=== PATIENT | male | born 1990 | race Caucasian/White ===

== ENCOUNTER 2018-11-18 20:23 | Emergency (ER) | payer OTHER ==
[~2018-11-18] VITALS: Ht 182.9 cm; Wt 81.7 kg
[~2018-11-18 20:23] MED LIST: ZANTAC 150MG T150 MG PO
[2018-11-18] MEDS ORDERED: VENTOLIN HFA 1818 GM INH (20:50)
[2018-11-18] MEDS ORDERED: MOBIC7.5 MG PO (21:27)
== END 2018-11-18 21:43 | disposition home or self-care (01) ==
LOC: ER 20:23
DX: M25.572 Pain in left ankle and joints of left foot (principal); J45.909 Unspecified asthma, uncomplicated; F17.210 Nicotine dependence, cigarettes, uncomplicated